=== PATIENT | female | born 1975 | race African-American/Black ===

== ENCOUNTER 2017-07-31 11:09 | Emergency (ER) | payer MEDICAID ==
[~2017-07-31] VITALS: Ht 162.6 cm; Wt 59.0 kg
[~2017-07-31 11:09] MED LIST: PREN-88 PO
[2017-07-31 11:44] LABS: BASOPHILS % 0.3 % (0.0-2.0); EOSINOPHILS % 0.2 % (0.0-5.0); HEMATOCRIT. 29.9 % (36.0-48.0); HEMOGLOBIN. 9.4 g/dL (12.0-16.0); LYMPHOCYTES % 27.4 % (20.0-50.0); MEAN CORPUSCULAR HEMOGLOBIN 20.6 pg (28.0-32.0); MEAN CORPUSCULAR VOLUME 65.3 fL (81.0-99.0); MEAN PLATELET VOLUME 8.4 fl (7.4-10.4); MONOCYTES % 5.3 % (2.0-8.0); NEUTROPHILS % 66.8 % (40.0-76.0); PLATELET 171 x1000/uL (130-400); RED BLOOD CELL COUNT 4.58 mill/uL (4.2-5.4); RED CELL DISTRIBUTION WIDTH 21.7 % (11.6-14.6)
[2017-07-31 11:50] LABS: CHLORIDE 108 mEq/L (98-107)
[2017-07-31 12:26] LABS: PLATELET ESTIMATE NORMAL
[2017-07-31] MEDS ORDERED: MAGNESIUM/ALUMINUM HYDROXIDE/SIMETHICONE 30ML UDC PO STA (13:09)
[2017-07-31] MEDS ORDERED: DICYCLOMINE 10 MG/5 ML ORAL SYR PO STA (13:09)
[2017-07-31] MEDS ORDERED: SODIUM CHLORIDE 0.9% 1,000 ML IV ONE (13:15)
[2017-07-31 14:54] VITALS: BP 149/85
== END 2017-07-31 15:29 | disposition home or self-care (01) ==
LOC: ER 11:45
DX: R19.7 Diarrhea, unspecified (principal); D64.9 Anemia, unspecified; R10.9 Unspecified abdominal pain
CPT/HCPCS: 36415; 80053; 81025; 85025; 96360; 99284; J7030

== ENCOUNTER 2019-12-08 09:40 | Emergency (ER) | payer MEDICAID, OTHER ==
[~2019-12-08] VITALS: Ht 172.7 cm; Wt 55.0 kg
[2019-12-08] MEDS ORDERED: ONDANSETRON HCL 4MG/2ML INJ IV STA (09:55)
[2019-12-08] MEDS ORDERED: SODIUM CHLORIDE 0.9% 1,000 ML IV ONE ×2 (09:55→10:35)
[2019-12-08] MEDS ORDERED: FAMOTIDINE 20MG/2ML VIAL IV STA (09:55)
[2019-12-08 10:35] LABS: BASOPHILS % 0.5 % (0.0-2.0); EOSINOPHILS % 0.1 % (0.0-5.0); HEMOGLOBIN. 10.1 g/dL (12.0-16.0); LYMPHOCYTES % 17.2 % (20.0-50.0); MEAN CORPUSCULAR HEMOGLOBIN 22.6 pg (28.0-32.0); MEAN PLATELET VOLUME 8.6 fl (7.4-10.4); NEUTROPHILS % 77.2 % (40.0-76.0); PLATELET 176 x1000/uL (130-400); RED BLOOD CELL COUNT 4.49 mill/uL (4.2-5.4); RED CELL DISTRIBUTION WIDTH 20.1 % (11.6-14.6)
[2019-12-08 10:41] LABS: CHLORIDE 103 mEq/L (98-107)
[2019-12-08 10:45] LABS: PROTHROMBIN TIME 10.6 sec (9.6-11.0)
[2019-12-08 10:57] LABS: HCG SCREEN NEGATIVE
[2019-12-08 12:26] LABS: PLATELET ESTIMATE NORMAL
[2019-12-08] MEDS ORDERED: POTASSIUM CHLORIDE 20MEQ TABLET SR PO ONE (12:30)
[2019-12-08 14:00] VITALS: BP 134/81
== END 2019-12-08 15:33 | disposition home or self-care (01) ==
LOC: ER 09:45
DX: R10.9 Unspecified abdominal pain (principal); E87.6 Hypokalemia; R51 Headache; D64.9 Anemia, unspecified; F41.9 Anxiety disorder, unspecified; F17.290 Nicotine dependence, other tobacco product, uncomplicated
CPT/HCPCS: 36415; 70450; 74176; 80053; 83690; 84703; 85025; 85610; 93005; 96361; 96374; 96375; 99285; J2405; J3490; J7030

== ENCOUNTER 2019-12-09 16:51 | Inpatient (IN) | payer MEDICAID ==
[~2019-12-09] VITALS: Ht 162.6 cm; Wt 50.8 kg
[2019-12-09] MEDS ORDERED: SODIUM CHLORIDE 0.9% 1,000 ML IV ONE (17:21)
[2019-12-09 18:02] LABS: CHLORIDE 102 mEq/L (98-107)
[2019-12-09 18:05] LABS: BASOPHILS % 0.7 % (0.0-2.0); EOSINOPHILS % 0.2 % (0.0-5.0); HEMATOCRIT. 33.8 % (36.0-48.0); HEMOGLOBIN. 10.9 g/dL (12.0-16.0); LYMPHOCYTES % 26.8 % (20.0-50.0); MEAN CORPUSCULAR HEMOGLOBIN 22.3 pg (28.0-32.0); MEAN CORPUSCULAR VOLUME 69.1 fL (81.0-99.0); MONOCYTES % 6.4 % (2.0-8.0); NEUTROPHILS % 65.9 % (40.0-76.0); PLATELET 181 x1000/uL (130-400); PROTHROMBIN TIME 10.6 sec (9.6-11.0); RED BLOOD CELL COUNT 4.89 mill/uL (4.2-5.4); RED CELL DISTRIBUTION WIDTH 19.6 % (11.6-14.6)
[2019-12-09 18:06] LABS: ETHANOL BLOOD < 10 mg/dL
[2019-12-09] MEDS ORDERED: MORPHINE SULFATE 4 MG/ML CPJ (NOT FOR IM USE) IV STA (18:19)
[2019-12-09 18:25] LABS: HCG SCREEN NEGATIVE
[2019-12-09] MEDS ORDERED: ASPIRIN 325MG EC TABLET PO ONE (18:30)
[2019-12-09 19:47] LABS: CLARITY URINE CLOUDY (CLEAR); COLOR URINE YELLOW (YELLOW); KETONES URINE 3+ (NEGATIVE); LEUKOCYTE ESTERASE URINE NEGATIVE (NEGATIVE); NITRITE URINE NEGATIVE (NEGATIVE); OCCULT BLOOD URINE 2+ (NEGATIVE); PROTEIN URINE NEGATIVE (NEGATIVE)
[2019-12-09 20:09] LABS: *AMPHETAMINES SCREEN URINE NEGATIVE (NEGATIVE); *BARBITURATES SCREEN URINE NEGATIVE (NEGATIVE); *BENZODIAZEPINES SCREEN URINE NEGATIVE (NEGATIVE)
[2019-12-09 20:10] LABS: *COCAINE SCREEN URINE NEGATIVE (NEGATIVE); METHADONE URINE SCREEN NEGATIVE (NEGATIVE); PHENCYCLIDINE URINE SCREEN NEGATIVE (NEGATIVE)
[2019-12-09 20:14] LABS: CANNABINOID URINE SCREEN PRESUMTIVE POSITIVE (NEGATIVE); OPIATES URINE SCREEN PRESUMTIVE POSITIVE (NEGATIVE)
[2019-12-09 20:23] LABS: PLATELET ESTIMATE NORMAL
[2019-12-09 23:50] VITALS: BP 139/88
[2019-12-10] MEDS ORDERED: ALBU6.7H11 INH (00:23)
[2019-12-10] MEDS ORDERED: ONDANSETRON HCL 4MG/2ML INJ IV PRN (01:30)
[2019-12-10] MEDS ORDERED: HYDROCODONE/ACETAMINOPHEN 10/325MG TABLET PO PRN (01:30)
[2019-12-10] MEDS: MORPHINE SULFATE 2 MG/ML CPJ (NOT FOR IM USE) IV PRN ×2 (01:55→10:55)
[2019-12-10] MEDS: ENOXAPARIN 30MG/0.3ML SYR SUBCUT SCH (02:07)
[2019-12-10 04:00] VITALS: BP 144/89
[2019-12-10 05:45] LABS: CHLORIDE 100 mEq/L (98-107)
[2019-12-10 06:11] LABS: BASOPHILS % 0.3 % (0.0-2.0); EOSINOPHILS % 0.1 % (0.0-5.0); HEMATOCRIT. 32.9 % (36.0-48.0); HEMOGLOBIN. 10.6 g/dL (12.0-16.0); LYMPHOCYTES % 18.8 % (20.0-50.0); MEAN CORPUSCULAR HEMOGLOBIN 22.4 pg (28.0-32.0); MEAN CORPUSCULAR VOLUME 69.6 fL (81.0-99.0); MEAN PLATELET VOLUME 9.7 fl (7.4-10.4); MONOCYTES % 5.3 % (2.0-8.0); NEUTROPHILS % 75.5 % (40.0-76.0); PLATELET 159 x1000/uL (130-400); RED BLOOD CELL COUNT 4.72 mill/uL (4.2-5.4)
[2019-12-10 08:00] VITALS: BP 142/86
[2019-12-10] MEDS: DEXT 5%/0.45% NACL 1000ML 1,000 ML IV SCH ×2 (10:49→21:30)
[2019-12-10 12:00] VITALS: BP 156/89
[2019-12-10] MEDS: PANTOPRAZOLE SODIUM 40 MG/VIAL IV SCH (12:50)
[2019-12-10 16:00] VITALS: BP 134/76
[2019-12-10 20:00] VITALS: BP 115/79
[2019-12-10] MEDS ORDERED: BISMUTH SUBSALICYLATE 262 MG/15 ML-120ML BOTTLE PO NR (20:30)
[2019-12-10 21:02] LABS: TOTAL IRON BINDING CAPACITY 352 ug/dL (250-450)
[2019-12-10 21:46] LABS: VITAMIN B12 SERUM 345 pg/mL (211-911)
[2019-12-10 21:49] LABS: FERRITIN 6 ng/mL (10-291)
[2019-12-10 22:39] LABS: FOLIC ACID (FOLATE) SERUM 5.6 ng/mL (>5.38)
[2019-12-11] VITALS: BP 132/77
[2019-12-11 04:00] VITALS: BP 133/81
[2019-12-11 08:06] VITALS: BP 131/75
[2019-12-11] MEDS: PANTOPRAZOLE SODIUM 40 MG/VIAL IV SCH (09:11)
[2019-12-11] MEDS: ENOXAPARIN 30MG/0.3ML SYR SUBCUT SCH (09:11)
[2019-12-11 12:11] VITALS: BP 134/74
[2019-12-11] MEDS ORDERED: METOCLOPRAMIDE HCL 10MG/2ML VIAL IV NR (13:00)
[2019-12-11] MEDS: DEXT 5%/0.45% NACL 1000ML 1,000 ML IV SCH ×2 (13:51→23:58)
[2019-12-11 16:11] LABS: CREATINE KINASE 31 IU/L (26-192)
[2019-12-11 16:12] LABS: CREATINE KINASE MB FRACTION < 1.0 ng/mL (0.5-3.6)
[2019-12-11 16:14] LABS: T4 FREE 1.14 ng/dL (0.76-1.46)
[2019-12-11 16:16] VITALS: BP 132/85
[2019-12-11 20:05] VITALS: BP 139/87
[2019-12-11] MEDS ORDERED: MORPHINE SULFATE 2 MG/ML CPJ (NOT FOR IM USE) IV PRN (20:30)
[2019-12-11] MEDS ORDERED: HYDROCODONE/ACETAMINOPHEN 10/325MG TABLET PO PRN (20:30)
[2019-12-11 23:59] LABS: CREATINE KINASE 34 IU/L (26-192)
[2019-12-12 00:01] LABS: CREATINE KINASE MB FRACTION < 1.0 ng/mL (0.5-3.6)
[2019-12-12 00:32] VITALS: BP 144/89
[2019-12-12 04:00] VITALS: BP 130/56
[2019-12-12 06:46] LABS: CREATINE KINASE 31 IU/L (26-192)
[2019-12-12 06:48] LABS: CREATINE KINASE MB FRACTION < 1.0 ng/mL (0.5-3.6)
[2019-12-12 08:00] VITALS: BP 132/77
[2019-12-12] MEDS: FAMOTIDINE 20MG/2ML VIAL IV SCH ×2 (08:38→21:48)
[2019-12-12] MEDS: ENOXAPARIN 30MG/0.3ML SYR SUBCUT SCH (08:38)
[2019-12-12 09:10] LABS: FOLATE HEMATOCRIT 30.9 % (34.0-46.6)
[2019-12-12 12:00] VITALS: BP 137/86
[2019-12-12] MEDS: DEXT 5%/0.45% NACL 1000ML 1,000 ML IV SCH (12:51)
[2019-12-12 14:08] LABS: FOLATE RBC 848 ng/mL (>498)
[2019-12-12 16:00] VITALS: BP 136/97
[2019-12-12 19:47] LABS: HEMATOCRIT 31.6 % (36.0-48.0); MEAN CORPUSCULAR HEMOGLOBIN 22.5 pg (28.0-32.0); MEAN CORPUSCULAR VOLUME 70.9 fL (81.0-99.0); PLATELET 145 x1000/uL (130-400); RED BLOOD CELL COUNT 4.46 mill/uL (4.2-5.4); RED CELL DISTRIBUTION WIDTH 20.2 % (11.6-14.6)
[2019-12-12 19:56] LABS: CHLORIDE 105 mEq/L (98-107)
[2019-12-12 20:01] LABS: PARTIAL THROMBOPLASTIN TIME 24.5 sec (23.4-31.0); PROTHROMBIN TIME 10.6 sec (9.6-11.0)
[2019-12-12 20:33] VITALS: BP 128/75
[2019-12-13 00:35] VITALS: BP 157/84
[2019-12-13 04:00] VITALS: BP 115/70
[2019-12-13] MEDS: DEXT 5%/0.45% NACL 1000ML 1,000 ML IV SCH ×3 (06:35→20:59)
[2019-12-13 07:41] LABS: BASOPHILS % 0.3 % (0.0-2.0); EOSINOPHILS % 0.9 % (0.0-5.0); HEMATOCRIT. 28.6 % (36.0-48.0); HEMOGLOBIN. 9.1 g/dL (12.0-16.0); MEAN CORPUSCULAR HEMOGLOBIN 22.5 pg (28.0-32.0); MEAN CORPUSCULAR VOLUME 70.8 fL (81.0-99.0); MEAN PLATELET VOLUME 10.8 fl (7.4-10.4); MONOCYTES % 10.7 % (2.0-8.0); NEUTROPHILS % 37.1 % (40.0-76.0); PLATELET 131 x1000/uL (130-400); RED BLOOD CELL COUNT 4.04 mill/uL (4.2-5.4); RED CELL DISTRIBUTION WIDTH 20.4 % (11.6-14.6)
[2019-12-13 07:53] LABS: CHLORIDE 107 mEq/L (98-107)
[2019-12-13 08:00] VITALS: BP 104/56
[2019-12-13] MEDS: ENOXAPARIN 30MG/0.3ML SYR SUBCUT SCH (09:00)
[2019-12-13] MEDS: FAMOTIDINE 20MG/2ML VIAL IV SCH ×2 (09:43→20:58)
[2019-12-13 12:00] VITALS: BP 140/88
[2019-12-13 16:00] VITALS: BP 124/69
[2019-12-13] MEDS ORDERED: MIDAZOLAM HCL 5 MG/5 ML VIAL ONE (17:28)
[2019-12-13] MEDS ORDERED: MIDAZOLAM HCL 5 MG/5 ML VIAL IV PRN (17:28)
[2019-12-13] MEDS ORDERED: FENTANYL CITRATE/PF 50MCG/ML 2ML VIAL IV PRN (17:29)
[2019-12-13] MEDS ORDERED: FENTANYL CITRATE/PF 50MCG/ML 2ML VIAL ONE (17:29)
[2019-12-13] MEDS ORDERED: DIAZEPAM 5 MG/ML 2ML CPJ IV PRN (17:32)
[2019-12-13] MEDS ORDERED: DIAZEPAM 5 MG/ML 2ML CPJ ONE (17:32)
[2019-12-13] MEDS: PANTOPRAZOLE SODIUM 40 MG/VIAL IV SCH (18:58)
[2019-12-13 20:00] VITALS: BP_SYST 123; BP_SYST 124; BP_DIAS 72; BP_DIAS 77
[2019-12-13] MEDS: SUCRALFATE 1G TABLET PO SCH (20:58)
[2019-12-14] VITALS: BP 126/75
[2019-12-14 04:00] VITALS: BP 121/82
[2019-12-14] MEDS: SUCRALFATE 1G TABLET PO SCH ×3 (06:19→16:39)
[2019-12-14 08:00] VITALS: BP 113/67
[2019-12-14] MEDS: ENOXAPARIN 30MG/0.3ML SYR SUBCUT SCH (08:48)
[2019-12-14] MEDS: FAMOTIDINE 20MG/2ML VIAL IV SCH (08:48)
[2019-12-14] MEDS: PANTOPRAZOLE SODIUM 40 MG/VIAL IV SCH (08:48)
[2019-12-14 12:00] VITALS: BP 110/86
[2019-12-14 16:00] VITALS: BP 112/86
[2019-12-14 16:16] VITALS: BP 115/84
== END 2019-12-14 18:41 | disposition home or self-care (01) | DRG 241 ==
LOC: ER 16:51 → 6WST 19:29 → ENRESERV 22:05
PROVIDERS: ADMIT Internal Medicine; ATTEND Internal Medicine
PROC: 0DB78ZX Excision of Stomach, Pylorus, Via Natural or Artificial Opening Endoscopic, Diagnostic (ICD-10-PCS; principal; 2019-12-13)
DX: K25.9 Gastric ulcer, unspecified as acute or chronic, without hemorrhage or perforation (principal); K29.70 Gastritis, unspecified, without bleeding; K29.80 Duodenitis without bleeding; D50.9 Iron deficiency anemia, unspecified; J45.909 Unspecified asthma, uncomplicated; D57.3 Sickle-cell trait; E46 Unspecified protein-calorie malnutrition; E86.0 Dehydration; E87.1 Hypo-osmolality and hyponatremia; F12.90 Cannabis use, unspecified, uncomplicated; Z20.828 Contact with and (suspected) exposure to other viral communicable diseases; F41.9 Anxiety disorder, unspecified; R07.89 Other chest pain; Z68.1 Body mass index [BMI] 19.9 or less, adult; Z79.899 Other long term (current) drug therapy
CPT/HCPCS: 36415; 71045; 76700; 80048; 80053; 80061; 80305; 80320; 81003; 82550; 82553; 82607; 82728; 82746; 82747; 83036; 83540; 83550; 83880; 84439; 84443; 84484; 84703; 85014; 85025; 85027; 85379; 87635; 88305; 88313; 93005; 93306; 96374; 99285; C9113; J1650; J2250; J2270; J2405; J2765; J3010; J3490; J7030; G0480

== ENCOUNTER 2021-01-02 15:39 | Emergency (ER) | payer MEDICAID ==
[~2021-01-02] VITALS: Ht 162.6 cm; Wt 63.0 kg
[~2021-01-02 15:39] MED LIST changes: +ALBU6.7H15 INH; -PREN-88 PO
[2021-01-02] MEDS ORDERED: PANTOPRAZOLE 40MG DR TABLET PO ONE (18:15)
[2021-01-02] MEDS ORDERED: VISCOUS LIDOCAINE 2% 15 ML UDC PO ONE (18:15)
[2021-01-02] MEDS ORDERED: MAGNESIUM/ALUMINUM HYDROXIDE/SIMETHICONE 30ML UDC PO ONE (18:15)
[2021-01-02 18:57] LABS: BASOPHILS % 0.4 % (0.0-2.0); EOSINOPHILS % 0.1 % (0.0-5.0); HEMATOCRIT. 37.8 % (36.0-48.0); LYMPHOCYTES % 33.1 % (20.0-50.0); MEAN CORPUSCULAR VOLUME 81.3 fL (81.0-99.0); MEAN PLATELET VOLUME 9.5 fl (7.4-10.4); NEUTROPHILS % 56.4 % (40.0-76.0); PLATELET 119 x1000/uL (130-400); RED BLOOD CELL COUNT 4.64 mill/uL (4.2-5.4); RED CELL DISTRIBUTION WIDTH 20.2 % (11.6-14.6)
[2021-01-02 19:32] LABS: CHLORIDE 108 mEq/L (98-107)
[2021-01-02] MEDS ORDERED: PANT40TA51 MT (20:10)
[2021-01-02] MEDS ORDERED: HYDROCODONE/ACETAMINOPHEN 5/325MG TABLET PO ONE (20:15)
[2021-01-02 20:18] LABS: CLARITY URINE CLEAR (CLEAR); COLOR URINE ORANGE (YELLOW); KETONES URINE TRACE (NEGATIVE); LEUKOCYTE ESTERASE URINE TRACE (NEGATIVE); NITRITE URINE NEGATIVE (NEGATIVE); OCCULT BLOOD URINE 3+ (NEGATIVE); PH URINE 8.5 (4.5-8.0); PROTEIN URINE 1+ (NEGATIVE); SPECIFIC GRAVITY URINE 1.016 (1.005-1.030)
[2021-01-02 20:51] VITALS: BP 136/76
[2021-01-03] MEDS ORDERED: NITR-87 MT (12:45)
[2021-01-03] MEDS ORDERED: SUCR1TAB MT (12:45)
[2021-01-03] MEDS ORDERED: ONDA4TAB5 MT (12:45)
== END 2021-01-02 20:52 | disposition home or self-care (01) ==
LOC: ER 15:39
DX: K29.00 Acute gastritis without bleeding (principal); F41.9 Anxiety disorder, unspecified; J45.909 Unspecified asthma, uncomplicated; D57.3 Sickle-cell trait; Z87.11 Personal history of peptic ulcer disease
CPT/HCPCS: 36415; 80053; 81003; 85025; 99284

== ENCOUNTER 2021-01-03 07:34 | Emergency (ER) | payer MEDICAID ==
[~2021-01-03] VITALS: Ht 172.7 cm; Wt 65.0 kg
[~2021-01-03 07:34] MED LIST changes: +ALBU6.7H11 INH; -ALBU6.7H15 INH; +PANT40TA51 MT
[2021-01-03] MEDS ORDERED: ONDANSETRON HCL 4MG/2ML INJ IV STA ×2 (07:46→08:09)
[2021-01-03] MEDS ORDERED: LORAZEPAM 2MG/ML CPJ IV ONE (08:00)
[2021-01-03] MEDS ORDERED: SODIUM CHLORIDE 0.9% 1,000 ML IV ONE (08:00)
[2021-01-03] MEDS ORDERED: MORPHINE SULFATE 4 MG/ML CPJ (NOT FOR IM USE) IV STA (08:09)
[2021-01-03 08:27] LABS: BASOPHILS % 0.3 % (0.0-2.0); EOSINOPHILS % 0.4 % (0.0-5.0); HEMATOCRIT. 38.8 % (36.0-48.0); HEMOGLOBIN. 13.2 g/dL (12.0-16.0); LYMPHOCYTES % 23.5 % (20.0-50.0); MEAN CORPUSCULAR HEMOGLOBIN 27.7 pg (28.0-32.0); MEAN CORPUSCULAR VOLUME 81.4 fL (81.0-99.0); MEAN PLATELET VOLUME 10.2 fl (7.4-10.4); MONOCYTES % 7.7 % (2.0-8.0); NEUTROPHILS % 68.1 % (40.0-76.0); PLATELET 114 x1000/uL (130-400); RED BLOOD CELL COUNT 4.76 mill/uL (4.2-5.4); RED CELL DISTRIBUTION WIDTH 19.9 % (11.6-14.6)
[2021-01-03 08:28] LABS: CLARITY URINE CLEAR (CLEAR); COLOR URINE ORANGE (YELLOW); KETONES URINE 1+ (NEGATIVE); LEUKOCYTE ESTERASE URINE NEGATIVE (NEGATIVE); NITRITE URINE NEGATIVE (NEGATIVE); OCCULT BLOOD URINE 3+ (NEGATIVE); PROTEIN URINE 1+ (NEGATIVE); SPECIFIC GRAVITY URINE 1.016 (1.005-1.030)
[2021-01-03 08:37] LABS: CHLORIDE 107 mEq/L (98-107); PROTHROMBIN TIME 10.7 sec (9.6-11.0)
[2021-01-03 08:40] LABS: HCG SCREEN NEGATIVE
[2021-01-03 08:46] LABS: ETHANOL BLOOD < 10 mg/dL
[2021-01-03 08:50] LABS: METHADONE URINE SCREEN NEGATIVE (NEGATIVE)
[2021-01-03 08:51] LABS: *AMPHETAMINES SCREEN URINE NEGATIVE (NEGATIVE); *BENZODIAZEPINES SCREEN URINE NEGATIVE (NEGATIVE); *COCAINE SCREEN URINE NEGATIVE (NEGATIVE); PHENCYCLIDINE URINE SCREEN NEGATIVE (NEGATIVE)
[2021-01-03 08:53] LABS: *BARBITURATES SCREEN URINE NEGATIVE (NEGATIVE)
[2021-01-03 08:54] LABS: CANNABINOID URINE SCREEN PRESUMTIVE POSITIVE (NEGATIVE); OPIATES URINE SCREEN PRESUMTIVE POSITIVE (NEGATIVE)
[2021-01-03] MEDS ORDERED: CEFTRIAXONE 1 G PREMIX 50 ML IV ONE (10:15)
[2021-01-03] MEDS ORDERED: SUCR1TAB MT (12:45)
[2021-01-03] MEDS ORDERED: NITR-87 MT (12:45)
[2021-01-03] MEDS ORDERED: ONDA4TAB5 MT (12:45)
[2021-01-03 13:36] VITALS: BP 136/82
== END 2021-01-03 13:51 | disposition home or self-care (01) ==
LOC: ER 07:34
DX: N39.0 Urinary tract infection, site not specified (principal); F12.10 Cannabis abuse, uncomplicated; R11.2 Nausea with vomiting, unspecified; J45.909 Unspecified asthma, uncomplicated; Z98.890 Other specified postprocedural states; Z87.19 Personal history of other diseases of the digestive system
CPT/HCPCS: 36415; 74176; 80053; 80305; 80320; 81003; 81025; 83690; 84703; 85025; 85610; 93005; 96365; 96375; 99285; J0696; J2060; J2270; J2405; J7030; G0480

== ENCOUNTER 2021-03-04 13:53 | Emergency (ER) | payer MEDICAID ==
[~2021-03-04] VITALS: Ht 162.6 cm; Wt 59.0 kg
[~2021-03-04 13:53] MED LIST changes: -ALBU6.7H11 INH; +ALBU6.7H15 INH; +NITR-87 MT; +ONDA4TAB5 MT; +SUCR1TAB MT
[2021-03-04] MEDS ORDERED: ONDANSETRON HCL 4MG/2ML INJ IV STA (14:52)
[2021-03-04] MEDS ORDERED: SODIUM CHLORIDE 0.9% 1,000 ML IV ONE (15:00)
[2021-03-04 15:13] LABS: BASOPHILS % 0.6 % (0.0-2.0); EOSINOPHILS % 0.2 % (0.0-5.0); HEMATOCRIT. 37.6 % (36.0-48.0); HEMOGLOBIN. 12.7 g/dL (12.0-16.0); LYMPHOCYTES % 29.2 % (20.0-50.0); MEAN CORPUSCULAR HEMOGLOBIN 28.8 pg (28.0-32.0); MEAN CORPUSCULAR VOLUME 85.4 fL (81.0-99.0); MEAN PLATELET VOLUME 9.8 fl (7.4-10.4); MONOCYTES % 9.1 % (2.0-8.0); NEUTROPHILS % 60.9 % (40.0-76.0); PLATELET 121 x1000/uL (130-400); RED BLOOD CELL COUNT 4.41 mill/uL (4.2-5.4); RED CELL DISTRIBUTION WIDTH 16.7 % (11.6-14.6)
[2021-03-04 15:21] LABS: CHLORIDE 108 mEq/L (98-107)
[2021-03-04 15:24] LABS: HCG SCREEN NEGATIVE
[2021-03-04 17:14] LABS: CLARITY URINE CLOUDY (CLEAR); COLOR URINE YELLOW (YELLOW); KETONES URINE 1+ (NEGATIVE); LEUKOCYTE ESTERASE URINE NEGATIVE (NEGATIVE); NITRITE URINE NEGATIVE (NEGATIVE); OCCULT BLOOD URINE 2+ (NEGATIVE); PH URINE 8.5 (4.5-8.0); PROTEIN URINE NEGATIVE (NEGATIVE); SPECIFIC GRAVITY URINE 1.016 (1.005-1.030); UROBILINOGEN URINE 0.2 E.U./dL (0.2-1.0)
[2021-03-04] MEDS ORDERED: ACETAMINOPHEN 325MG TABLET PO ONE (17:15)
[2021-03-04] MEDS ORDERED: ONDA4TAB5 MT (17:23)
[2021-03-04 19:30] VITALS: BP 179/83
== END 2021-03-04 19:46 | disposition home or self-care (01) ==
LOC: ER 14:04
DX: T88.1XXA Other complications following immunization, not elsewhere classified, initial encounter (principal); R51.9 Headache, unspecified; R10.9 Unspecified abdominal pain; Y92.89 Other specified places as the place of occurrence of the external cause
CPT/HCPCS: 36415; 80053; 81003; 84703; 85025; 96361; 96374; 99285; J2405; Z7610

== ENCOUNTER 2023-09-09 07:43 | Emergency (ER) | payer MEDICAID ==
[~2023-09-09] VITALS: Ht 172.7 cm; Wt 55.0 kg
[2023-09-09 07:45] VITALS: O2SAT 100
[2023-09-09] MEDS: SODIUM CHLORIDE 0.9% 1,000 ML IV ONE (08:00)
[2023-09-09] MEDS: ACETAMINOPHEN 325MG TABLET PO STA (08:35)
[2023-09-09] MEDS: METOCLOPRAMIDE HCL 10MG/2ML VIAL IV ONE (08:39)
[2023-09-09 08:52] LABS: CHLORIDE 105 mEq/L (98-107); POTASSIUM 3.6 mEq/L (3.5-5.1); SODIUM 138 mEq/L (136-145)
[2023-09-09 08:53] LABS: CALCIUM 10.3 mg/dL (8.7-10.4); CARBON DIOXIDE 24 mEq/L (21-32)
[2023-09-09 08:58] LABS: CREATININE 0.7 mg/dL (0.6-1.0); GLUCOSE 112 mg/dL (70-105); UREA NITROGEN BLOOD 5 mg/dL (9-23)
[2023-09-09 09:04] LABS: HEMATOCRIT. 47.3 % (36.0-48.0); HEMOGLOBIN. 16.9 g/dL (12.0-16.0); MEAN CORPUSCULAR HEMOGLOBIN 31.8 pg (28.0-32.0); MEAN CORPUSCULAR HGB CONC 35.7 g/dL (31.0-37.0); MEAN CORPUSCULAR VOLUME 89.1 fL (81.0-99.0); PLATELET 156 x1000/uL (130-400); RED BLOOD CELL COUNT 5.31 mill/uL (4.2-5.4); RED CELL DISTRIBUTION WIDTH 14.4 % (11.6-14.6); WHITE BLOOD COUNT 4.8 x1000/uL (4.5-11.0)
[2023-09-09 09:05] LABS: DIFFERENTIAL COMMENT 1
[2023-09-09 09:42] LABS: HCG SCREEN NEGATIVE
[2023-09-09 11:36] LABS: PLATELET ESTIMATE NORMAL
[2023-09-09 12:32] VITALS: BP 149/90; PULSE 65; RESP 18; TEMP 97.3
== END 2023-09-09 15:00 | disposition home or self-care (01) ==
LOC: ER 07:43
DX: R51.9 Headache, unspecified (principal); J45.909 Unspecified asthma, uncomplicated; I10 Essential (primary) hypertension
CPT/HCPCS: 99283; 96374; 96361; 80048; 81025; 84703; 85025; 36415; J2765; J7030